=== PATIENT | male | born 1935 | race Caucasian/White ===

== ENCOUNTER 2021-12-25 15:24 | Inpatient (IN) | payer BC ==
[~2021-12-25] VITALS: Ht 172.7 cm; Wt 108.4 kg
[2021-12-25 15:25] VITALS: BP_SYST 118
[2021-12-25 16:25] LABS: BASOPHILS # (AUTO) 0.1 K/uL (0.0-0.2); BASOPHILS % (AUTO) 1.2 % (0.0-2.0); EOSINOPHILS # (AUTO) 0.5 K/uL (0.0-0.4); EOSINOPHILS % (AUTO) 4.5 % (0.0-4.0); HEMATOCRIT 32.8 % (36-54); HEMOGLOBIN 11.3 g/dL (14.0-18.0); LYMPHOCYTES # (AUTO) 1.4 K/uL (1.0-5.5); LYMPHOCYTES % (AUTO) 11.9 % (20.5-51.5); MEAN CORPUSCULAR HEMOGLOBIN 30 pg (27-31); MEAN CORPUSCULAR HGB CONC 34 % (32-36); MEAN CORPUSCULAR VOLUME 87 fL (79.0-98.0); MONOCYTES % (AUTO) 8.6 % (1.7-9.3); NEUTROPHILS # (AUTO) 8.8 K/uL (1.8-7.7); NEUTROPHILS % (AUTO) 73.8 % (40.0-70.0); PLATELET COUNT (AUTO) 413 K/uL (130-430); RED BLOOD CELL COUNT(AUTO) 3.77 MIL/uL (4.2-6.2); RED CELL DISTRIBUTION WIDTH 14.5 % (9.0-15.0)
[2021-12-25 16:43] LABS: ANION GAP 13 (5-15); CALCIUM 8.6 mg/dL (8.4-11.0); CHLORIDE 105 mmol/L (98-107); CREATININE 1.79 mg/dL (0.55-1.30); GLUCOSE 203 mg/dL (70-99); SODIUM SERUM 138 mmol/L (136-145); UREA NITROGEN, BLOOD 51 mg/dL (8-21)
[2021-12-25 16:47] LABS: ALANINE AMINOTRANSFERASE 51 U/L (12-78); ALBUMIN 2.2 g/dL (3.4-4.8); ASPARTATE AMINOTRANSFERASE 34 U/L (10-37); TOTAL BILIRUBIN 0.3 mg/dL (0.0-1.0)
[2021-12-25] MEDS ORDERED: NACL 0.9% 1,000 ML IV ONE (17:15)
[2021-12-25 17:18] LABS: ACETONE, SERUM NEGATIVE (NEGATIVE)
[2021-12-25] MEDS ORDERED: HYDROcodone/ACETAMIN 10-325 MG TAB PO ONE (17:45)
[2021-12-25] MEDS ORDERED: IBUPROFEN 800 MG TABLET PO ONE (17:45)
[2021-12-25 19:14] LABS: BILIRUBIN,URINE NEGATIVE (NEGATIVE); BLOOD, URINE NEGATIVE (NEGATIVE); CLARITY/URINE CLEAR (CLEAR); COLOR,URINE YELLOW (YELLOW); GLUCOSE,URINE NEGATIVE (NEGATIVE); KETONES,URINE NEGATIVE (NEGATIVE); LEUKOCYTE ESTERASE ,URINE NEGATIVE (NEGATIVE); NITRITE, URINE NEGATIVE (NEGATIVE); PROTEIN URINE NEGATIVE (NEGATIVE); UROBILINOGEN,URINE 0.2 (0.2-1.0)
[2021-12-25] MEDS: D5/0.45 NS 1,000 ML IV SCH ×2 (20:06→21:45)
[2021-12-25 21:00] VITALS: BP_SYST 121
[2021-12-25] MEDS ORDERED: NALOXONE HCL 0.4 MG/ML AMP (NARCAN) IVP PRN ×2 (21:45)
[2021-12-25] MEDS ORDERED: LORazepam 2 MG/ML VIAL IVP PRN (21:45)
[2021-12-25] MEDS ORDERED: ONDANSETRON HCL 4 MG/2 ML VIAL IVP PRN (21:45)
[2021-12-25] MEDS ORDERED: METO-540 PO (22:41)
[2021-12-25] MEDS ORDERED: TAMS-11 PO (22:41)
[2021-12-25] MEDS ORDERED: GLIP10TA PO (22:41)
[2021-12-25] MEDS ORDERED: VALS1TAB80 PO (22:41)
[2021-12-25] MEDS ORDERED: LOVA40TA75 PO (22:41)
[2021-12-25] MEDS ORDERED: VIT1TABL67 PO (22:41)
[2021-12-25] MEDS ORDERED: ALLO100T PO (22:41)
[2021-12-25] MEDS ORDERED: SITA1TBM4 PO (22:41)
[2021-12-26] MEDS: D5/0.45 NS 1,000 ML IV SCH ×4 (02:51→19:00)
[2021-12-26] MEDS: ACETAMINOPHEN 325 MG TABLET PO PRN (04:52)
[2021-12-26 06:41] LABS: BASOPHILS # (AUTO) 0.1 K/uL (0.0-0.2); BASOPHILS % (AUTO) 0.8 % (0.0-2.0); EOSINOPHILS # (AUTO) 0.7 K/uL (0.0-0.4); EOSINOPHILS % (AUTO) 6.2 % (0.0-4.0); HEMATOCRIT 31.9 % (36-54); HEMOGLOBIN 10.7 g/dL (14.0-18.0); LYMPHOCYTES # (AUTO) 1.4 K/uL (1.0-5.5); LYMPHOCYTES % (AUTO) 11.8 % (20.5-51.5); MEAN CORPUSCULAR HEMOGLOBIN 29 pg (27-31); MEAN CORPUSCULAR HGB CONC 33 % (32-36); MEAN CORPUSCULAR VOLUME 88 fL (79.0-98.0); MONOCYTES # (AUTO) 1.1 K/uL (0.0-1.0); MONOCYTES % (AUTO) 9.2 % (1.7-9.3); NEUTROPHILS # (AUTO) 8.5 K/uL (1.8-7.7); PLATELET COUNT (AUTO) 412 K/uL (130-430); RED BLOOD CELL COUNT(AUTO) 3.64 MIL/uL (4.2-6.2); RED CELL DISTRIBUTION WIDTH 14.5 % (9.0-15.0); WHITE BLOOD COUNT (AUTO) 11.9 K/uL (4.8-10.8)
[2021-12-26 07:04] LABS: ALANINE AMINOTRANSFERASE 36 U/L (12-78); ANION GAP 10 (5-15); ASPARTATE AMINOTRANSFERASE 29 U/L (10-37); C-REACTIVE PROTEIN QUANT 8.7 mg/dL (0-0.5); CALCIUM 8.1 mg/dL (8.4-11.0); CHLORIDE 107 mmol/L (98-107); CREATININE 1.51 mg/dL (0.55-1.30); GLUCOSE 188 mg/dL (70-99); PHOSPHORUS 3.2 mg/dL (2.7-4.5); POTASSIUM 3.6 mmol/L (3.5-5.1); SODIUM SERUM 137 mmol/L (136-145); TOTAL BILIRUBIN 0.3 mg/dL (0.0-1.0); UREA NITROGEN, BLOOD 42 mg/dL (8-21)
[2021-12-26 07:25] VITALS: BP_SYST 137
[2021-12-26] MEDS ORDERED: ONDANSETRON HCL 4 MG/2 ML VIAL IVP PRN (07:30)
[2021-12-26] MEDS ORDERED: MORPHINE 2 MG/ML INJ. SYRINGE IVP PRN ×2 (07:30)
[2021-12-26] MEDS ORDERED: ACETAMINOPHEN 325 MG TABLET PO PRN (07:30)
[2021-12-26] MEDS ORDERED: LORazepam 2 MG/ML VIAL IVP PRN (07:30)
[2021-12-26] MEDS ORDERED: NALOXONE HCL 0.4 MG/ML AMP (NARCAN) IVP PRN ×2 (07:30)
[2021-12-26] MEDS ORDERED: POTASSIUM CHLORIDE 20 MEQ TAB.PRT.SR PO PRN (07:30)
[2021-12-26] MEDS ORDERED: MUPIROCIN 2% TOPICAL OINTMENT 22 GM NS PRN (07:30)
[2021-12-26] MEDS ORDERED: MAGNESIUM SULFATE 50 ML IV PRN (07:30)
[2021-12-26] MEDS ORDERED: DEXTROSE 50% JECT 50 ML DISP.SYRIN IVP PRN (07:30)
[2021-12-26] MEDS: ALLOPURINOL 100 MG TABLET (ZYLOPRIM) PO SCH ×3 (08:26→21:33)
[2021-12-26] MEDS: TAMSULOSIN HCL 0.4 MG CAP PO SCH (08:26)
[2021-12-26] MEDS: HEPARIN SODIUM,PORCINE 5,000 UNITS/ML VIAL SUBCUT SCH ×2 (08:33→21:44)
[2021-12-26] MEDS ORDERED: HYDROCHLOROTHIAZIDE 25 MG TABLET (HCTZ) PO SCH (09:00)
[2021-12-26 09:18] LABS: ERYTHROCYTE SEDIMENTATION RATE 97 MM/HR (0-15)
[2021-12-26] MEDS ORDERED: ATORVASTATIN 10 MG TABLET PO ONE (11:00)
[2021-12-26 11:41] VITALS: BP_SYST 144
[2021-12-26] MEDS: METOPROLOL SUCCINATE 25 MG TAB.SR.24H (TOPROL XL) PO SCH (12:02)
[2021-12-26] MEDS: INSULIN LISPRO SLIDING SCALE 100 UNITS/ML VIAL (humaLOG) SUBCUT PRN ×3 (12:07→21:44)
[2021-12-26] MEDS: HYDROcodone/ACETAMIN 5-325 MG TAB (NORCO/ VICODIN) PO PRN (13:06)
[2021-12-26 16:30] VITALS: BP_SYST 142
[2021-12-26] MEDS: cefTRIAXone 1 GM in D5W 50 ML IV SCH (17:53)
[2021-12-26] MEDS: HYDROcodone/ACETAMIN 10-325 MG TAB PO PRN (18:59)
[2021-12-26 20:00] VITALS: BP_SYST 136
[2021-12-26] MEDS: DOCUSATE SODIUM 100 MG CAPSULE PO PRN (21:34)
[2021-12-27 01:45] VITALS: BP_SYST 137
[2021-12-27] MEDS: HYDROcodone/ACETAMIN 10-325 MG TAB PO PRN ×3 (03:00→22:30)
[2021-12-27] MEDS: D5/0.45 NS 1,000 ML IV SCH ×2 (03:45→14:12)
[2021-12-27 05:30] VITALS: BP_SYST 124
[2021-12-27 06:25] LABS: BASOPHILS # (AUTO) 0.1 K/uL (0.0-0.2); BASOPHILS % (AUTO) 0.6 % (0.0-2.0); EOSINOPHILS # (AUTO) 0.6 K/uL (0.0-0.4); EOSINOPHILS % (AUTO) 4.3 % (0.0-4.0); HEMATOCRIT 32.4 % (36-54); HEMOGLOBIN 11.1 g/dL (14.0-18.0); LYMPHOCYTES # (AUTO) 1.4 K/uL (1.0-5.5); LYMPHOCYTES % (AUTO) 10.7 % (20.5-51.5); MEAN CORPUSCULAR HEMOGLOBIN 30 pg (27-31); MEAN CORPUSCULAR HGB CONC 34 % (32-36); MEAN CORPUSCULAR VOLUME 87 fL (79.0-98.0); MONOCYTES # (AUTO) 1.1 K/uL (0.0-1.0); MONOCYTES % (AUTO) 8.1 % (1.7-9.3); NEUTROPHILS # (AUTO) 10.3 K/uL (1.8-7.7); NEUTROPHILS % (AUTO) 76.3 % (40.0-70.0); PLATELET COUNT (AUTO) 408 K/uL (130-430); RED BLOOD CELL COUNT(AUTO) 3.71 MIL/uL (4.2-6.2); RED CELL DISTRIBUTION WIDTH 14.4 % (9.0-15.0); WHITE BLOOD COUNT (AUTO) 13.5 K/uL (4.8-10.8)
[2021-12-27 06:39] LABS: ANION GAP 12 (5-15); CHLORIDE 103 mmol/L (98-107); CREATININE 1.32 mg/dL (0.55-1.30); GLUCOSE 219 mg/dL (70-99); POTASSIUM 3.7 mmol/L (3.5-5.1); SODIUM SERUM 133 mmol/L (136-145); UREA NITROGEN, BLOOD 25 mg/dL (8-21)
[2021-12-27] MEDS: INSULIN LISPRO SLIDING SCALE 100 UNITS/ML VIAL (humaLOG) SUBCUT PRN ×3 (07:02→17:33)
[2021-12-27] MEDS: ATORVASTATIN 10 MG TABLET PO SCH (08:42)
[2021-12-27] MEDS: TAMSULOSIN HCL 0.4 MG CAP PO SCH (08:42)
[2021-12-27] MEDS: ALLOPURINOL 100 MG TABLET (ZYLOPRIM) PO SCH ×3 (08:42→21:00)
[2021-12-27] MEDS: LOSARTAN POTASSIUM 50 MG TABLET (COZAAR) PO SCH (08:43)
[2021-12-27] MEDS: METOPROLOL SUCCINATE 25 MG TAB.SR.24H (TOPROL XL) PO SCH (08:43)
[2021-12-27] MEDS ORDERED: APIXABAN 2.5 MG TABLET PO ONE (09:15)
[2021-12-27] MEDS: AMIODARONE HCL 200 MG TABLET PO SCH ×2 (10:23→21:00)
[2021-12-27 12:52] VITALS: BP_SYST 117
[2021-12-27] MEDS: HYDROcodone/ACETAMIN 5-325 MG TAB (NORCO/ VICODIN) PO PRN (14:11)
[2021-12-27] MEDS: DOCUSATE SODIUM 100 MG CAPSULE PO PRN (14:13)
[2021-12-27 16:33] VITALS: BP_SYST 115
[2021-12-27] MEDS: cefTRIAXone 1 GM in D5W 50 ML IV SCH (17:01)
[2021-12-27] MEDS: LACTULOSE 20 GM/30 ML UDC PO SCH (21:00)
[2021-12-28] MEDS: D5/0.45 NS 1,000 ML IV SCH
[2021-12-28] MEDS: APIXABAN 2.5 MG TABLET PO SCH ×3 (00:16→20:59)
[2021-12-28 00:31] VITALS: BP_SYST 120
[2021-12-28] MEDS: HYDROcodone/ACETAMIN 10-325 MG TAB PO PRN (06:02)
[2021-12-28] MEDS: INSULIN LISPRO SLIDING SCALE 100 UNITS/ML VIAL (humaLOG) SUBCUT PRN ×4 (06:09→21:02)
[2021-12-28 07:56] LABS: BASOPHILS # (AUTO) 0.1 K/uL (0.0-0.2); BASOPHILS % (AUTO) 0.7 % (0.0-2.0); EOSINOPHILS # (AUTO) 0.4 K/uL (0.0-0.4); EOSINOPHILS % (AUTO) 2.5 % (0.0-4.0); HEMATOCRIT 31.9 % (36-54); HEMOGLOBIN 10.9 g/dL (14.0-18.0); LYMPHOCYTES # (AUTO) 1.2 K/uL (1.0-5.5); LYMPHOCYTES % (AUTO) 8.5 % (20.5-51.5); MEAN CORPUSCULAR HEMOGLOBIN 30 pg (27-31); MEAN CORPUSCULAR HGB CONC 34 % (32-36); MEAN CORPUSCULAR VOLUME 87 fL (79.0-98.0); MONOCYTES % (AUTO) 7.4 % (1.7-9.3); NEUTROPHILS # (AUTO) 11.5 K/uL (1.8-7.7); NEUTROPHILS % (AUTO) 80.9 % (40.0-70.0); PLATELET COUNT (AUTO) 427 K/uL (130-430); RED BLOOD CELL COUNT(AUTO) 3.66 MIL/uL (4.2-6.2); RED CELL DISTRIBUTION WIDTH 14.8 % (9.0-15.0); WHITE BLOOD COUNT (AUTO) 14.2 K/uL (4.8-10.8)
[2021-12-28 08:07] VITALS: BP_SYST 124
[2021-12-28] MEDS: AMIODARONE HCL 200 MG TABLET PO SCH ×2 (08:09→20:57)
[2021-12-28] MEDS: LOSARTAN POTASSIUM 50 MG TABLET (COZAAR) PO SCH (08:09)
[2021-12-28] MEDS: METOPROLOL SUCCINATE 25 MG TAB.SR.24H (TOPROL XL) PO SCH (08:10)
[2021-12-28] MEDS: ALLOPURINOL 100 MG TABLET (ZYLOPRIM) PO SCH ×3 (08:11→20:57)
[2021-12-28] MEDS: ATORVASTATIN 10 MG TABLET PO SCH (08:11)
[2021-12-28] MEDS: LACTULOSE 20 GM/30 ML UDC PO SCH ×3 (08:11→20:56)
[2021-12-28] MEDS: TAMSULOSIN HCL 0.4 MG CAP PO SCH (08:11)
[2021-12-28 09:49] LABS: CHLORIDE 103 mmol/L (98-107); POTASSIUM 4.1 mmol/L (3.5-5.1); SODIUM SERUM 133 mmol/L (136-145)
[2021-12-28 09:50] LABS: ALANINE AMINOTRANSFERASE 33 U/L (12-78); ALBUMIN 1.9 g/dL (3.4-4.8); ANION GAP 12 (5-15); ASPARTATE AMINOTRANSFERASE 20 U/L (10-37); CALCIUM 8.4 mg/dL (8.4-11.0); CREATININE 1.33 mg/dL (0.55-1.30); GLUCOSE 228 mg/dL (70-99); TOTAL BILIRUBIN 0.5 mg/dL (0.0-1.0); UREA NITROGEN, BLOOD 23 mg/dL (8-21)
[2021-12-28 09:51] LABS: CHOLESTEROL 98 mg/dL (<200); HDL CHOLESTEROL 33 mg/dL (>45); LDL CHOLESTEROL 58 mg/dL (<100); TRIGLYCERIDES 65 mg/dL (30-150)
[2021-12-28 10:35] LABS: THYROID STIMULATING HORMONE 0.27 uIu/mL (0.36-3.74)
[2021-12-28 11:54] VITALS: BP_SYST 132
[2021-12-28] MEDS: ACETAMINOPHEN 325 MG TABLET PO PRN (13:51)
[2021-12-28] MEDS ORDERED: FUROSEMIDE 20 MG/2 ML VIAL IVP ONE (16:15)
[2021-12-28] MEDS ORDERED: ALBUTEROL SULFATE 0.083% 2.5 MG/3 ML VIAL.NEB INH ONE (16:33)
[2021-12-28] MEDS: ALBUTEROL SULFATE 0.083% 2.5 MG/3 ML VIAL.NEB INH SCH (16:43)
[2021-12-28 17:02] VITALS: BP_SYST 129
[2021-12-28 17:10] VITALS: BP_SYST 129
[2021-12-28] MEDS: cefTRIAXone 1 GM in D5W 50 ML IV SCH (17:48)
[2021-12-28 20:00] VITALS: BP_SYST 152
[2021-12-29 00:52] VITALS: BP_SYST 153
[2021-12-29] MEDS: INSULIN LISPRO SLIDING SCALE 100 UNITS/ML VIAL (humaLOG) SUBCUT PRN ×4 (06:08→20:34)
[2021-12-29 07:30] LABS: BASOPHILS # (AUTO) 0.1 K/uL (0.0-0.2); BASOPHILS % (AUTO) 0.9 % (0.0-2.0); EOSINOPHILS # (AUTO) 0.3 K/uL (0.0-0.4); EOSINOPHILS % (AUTO) 2.3 % (0.0-4.0); HEMATOCRIT 33.8 % (36-54); HEMOGLOBIN 11.5 g/dL (14.0-18.0); LYMPHOCYTES # (AUTO) 1.2 K/uL (1.0-5.5); LYMPHOCYTES % (AUTO) 7.8 % (20.5-51.5); MEAN CORPUSCULAR HEMOGLOBIN 30 pg (27-31); MEAN CORPUSCULAR HGB CONC 34 % (32-36); MEAN CORPUSCULAR VOLUME 88 fL (79.0-98.0); MONOCYTES # (AUTO) 1.1 K/uL (0.0-1.0); MONOCYTES % (AUTO) 7.6 % (1.7-9.3); NEUTROPHILS # (AUTO) 12.4 K/uL (1.8-7.7); NEUTROPHILS % (AUTO) 81.4 % (40.0-70.0); PLATELET COUNT (AUTO) 463 K/uL (130-430); RED BLOOD CELL COUNT(AUTO) 3.87 MIL/uL (4.2-6.2); RED CELL DISTRIBUTION WIDTH 14.4 % (9.0-15.0); WHITE BLOOD COUNT (AUTO) 15.2 K/uL (4.8-10.8)
[2021-12-29 07:32] LABS: ANION GAP 11 (5-15); CALCIUM 8.3 mg/dL (8.4-11.0); CHLORIDE 102 mmol/L (98-107); CREATININE 1.41 mg/dL (0.55-1.30); GLUCOSE 210 mg/dL (70-99); SODIUM SERUM 132 mmol/L (136-145); UREA NITROGEN, BLOOD 22 mg/dL (8-21)
[2021-12-29] MEDS: ALBUTEROL SULFATE 0.083% 2.5 MG/3 ML VIAL.NEB INH SCH ×5 (07:50→23:10)
[2021-12-29 08:00] VITALS: BP_SYST 146
[2021-12-29] MEDS: ATORVASTATIN 10 MG TABLET PO SCH (08:54)
[2021-12-29] MEDS: ALLOPURINOL 100 MG TABLET (ZYLOPRIM) PO SCH ×3 (08:55→20:19)
[2021-12-29] MEDS: TAMSULOSIN HCL 0.4 MG CAP PO SCH (08:55)
[2021-12-29] MEDS: LOSARTAN POTASSIUM 50 MG TABLET (COZAAR) PO SCH (08:55)
[2021-12-29] MEDS: AMIODARONE HCL 200 MG TABLET PO SCH ×2 (08:56→20:19)
[2021-12-29] MEDS: LACTULOSE 20 GM/30 ML UDC PO SCH ×3 (08:57→20:19)
[2021-12-29] MEDS: METOPROLOL SUCCINATE 25 MG TAB.SR.24H (TOPROL XL) PO SCH (08:57)
[2021-12-29] MEDS: APIXABAN 2.5 MG TABLET PO SCH ×2 (08:57→20:31)
[2021-12-29 12:00] VITALS: BP_SYST 128
[2021-12-29] MEDS: PIPERACILLIN/TAZO 2.25G/DEX-IS 50 ML IV SCH ×2 (12:28→20:15)
[2021-12-29 16:00] VITALS: BP_SYST 132
[2021-12-29] MEDS ORDERED: DIATR MEGLU/DIATRIZ SOD 30 ML SOLUTION PO ONE (16:33)
[2021-12-29] MEDS ORDERED: FUROSEMIDE 20 MG/2 ML VIAL IVP ONE (17:00)
[2021-12-29] MEDS ORDERED: iohexoL 240 mgI/mL, 150 ML INFUS..BTL IV ONE (18:43)
[2021-12-29 20:00] VITALS: BP_SYST 138
[2021-12-30] VITALS: BP_SYST 133
[2021-12-30] MEDS: PIPERACILLIN/TAZO 2.25G/DEX-IS 50 ML IV SCH ×4 (01:48→19:00)
[2021-12-30] MEDS: ALBUTEROL SULFATE 0.083% 2.5 MG/3 ML VIAL.NEB INH SCH ×6 (03:19→23:35)
[2021-12-30] MEDS: ACETAMINOPHEN 325 MG TABLET PO PRN ×2 (04:19→20:36)
[2021-12-30] MEDS: INSULIN LISPRO SLIDING SCALE 100 UNITS/ML VIAL (humaLOG) SUBCUT PRN ×4 (06:25→20:51)
[2021-12-30 07:27] LABS: BASOPHILS # (AUTO) 0.1 K/uL (0.0-0.2); BASOPHILS % (AUTO) 0.8 % (0.0-2.0); EOSINOPHILS # (AUTO) 0.3 K/uL (0.0-0.4); EOSINOPHILS % (AUTO) 2.5 % (0.0-4.0); HEMATOCRIT 31.7 % (36-54); HEMOGLOBIN 10.9 g/dL (14.0-18.0); LYMPHOCYTES # (AUTO) 0.6 K/uL (1.0-5.5); LYMPHOCYTES % (AUTO) 4.8 % (20.5-51.5); MEAN CORPUSCULAR HEMOGLOBIN 30 pg (27-31); MEAN CORPUSCULAR HGB CONC 34 % (32-36); MEAN CORPUSCULAR VOLUME 87 fL (79.0-98.0); MONOCYTES # (AUTO) 0.5 K/uL (0.0-1.0); MONOCYTES % (AUTO) 3.9 % (1.7-9.3); NEUTROPHILS # (AUTO) 11.6 K/uL (1.8-7.7); PLATELET COUNT (AUTO) 460 K/uL (130-430); RED BLOOD CELL COUNT(AUTO) 3.64 MIL/uL (4.2-6.2); RED CELL DISTRIBUTION WIDTH 14.9 % (9.0-15.0); WHITE BLOOD COUNT (AUTO) 13.2 K/uL (4.8-10.8)
[2021-12-30 07:56] LABS: ANION GAP 11 (5-15); CALCIUM 8.4 mg/dL (8.4-11.0); CHLORIDE 101 mmol/L (98-107); CREATININE 1.68 mg/dL (0.55-1.30); GLUCOSE 246 mg/dL (70-99); POTASSIUM 3.7 mmol/L (3.5-5.1); SODIUM SERUM 132 mmol/L (136-145); UREA NITROGEN, BLOOD 27 mg/dL (8-21)
[2021-12-30] MEDS: AMIODARONE HCL 200 MG TABLET PO SCH ×2 (08:52→20:35)
[2021-12-30] MEDS: LOSARTAN POTASSIUM 50 MG TABLET (COZAAR) PO SCH (09:01)
[2021-12-30] MEDS: TAMSULOSIN HCL 0.4 MG CAP PO SCH (09:02)
[2021-12-30] MEDS: METOPROLOL SUCCINATE 25 MG TAB.SR.24H (TOPROL XL) PO SCH (09:02)
[2021-12-30] MEDS: ATORVASTATIN 10 MG TABLET PO SCH (09:02)
[2021-12-30] MEDS: LACTULOSE 20 GM/30 ML UDC PO SCH (09:03)
[2021-12-30] MEDS: ALLOPURINOL 100 MG TABLET (ZYLOPRIM) PO SCH ×3 (09:03→20:35)
[2021-12-30] MEDS: APIXABAN 2.5 MG TABLET PO SCH ×2 (09:05→20:34)
[2021-12-30 10:01] VITALS: BP_SYST 116
[2021-12-30] MEDS ORDERED: LACTULOSE 20 GM/30 ML UDC PO PRN (11:00)
[2021-12-30 11:36] VITALS: BP_SYST 118
[2021-12-30] MEDS: NACL 0.9% 1,000 ML IV SCH (11:40)
[2021-12-30 20:10] VITALS: BP_SYST 112
[2021-12-31] VITALS (9 sets, daily range): BP systolic 110–123
[2021-12-31] MEDS: PIPERACILLIN/TAZO 2.25G/DEX-IS 50 ML IV SCH ×4 (00:28→18:00)
[2021-12-31] MEDS: ALBUTEROL SULFATE 0.083% 2.5 MG/3 ML VIAL.NEB INH SCH ×6 (03:00→23:53)
[2021-12-31] MEDS: INSULIN LISPRO SLIDING SCALE 100 UNITS/ML VIAL (humaLOG) SUBCUT PRN ×4 (06:16→21:10)
[2021-12-31 07:53] LABS: ANION GAP 7 (5-15); CALCIUM 8.3 mg/dL (8.4-11.0); CHLORIDE 102 mmol/L (98-107); CREATININE 1.97 mg/dL (0.55-1.30); GLUCOSE 201 mg/dL (70-99); POTASSIUM 3.9 mmol/L (3.5-5.1); SODIUM SERUM 132 mmol/L (136-145); UREA NITROGEN, BLOOD 34 mg/dL (8-21)
[2021-12-31 08:36] LABS: BASOPHILS % (AUTO) 0.4 % (0.0-2.0); EOSINOPHILS # (AUTO) 0.6 K/uL (0.0-0.4); EOSINOPHILS % (AUTO) 5.5 % (0.0-4.0); HEMATOCRIT 32.3 % (36-54); HEMOGLOBIN 10.9 g/dL (14.0-18.0); LYMPHOCYTES # (AUTO) 0.9 K/uL (1.0-5.5); MEAN CORPUSCULAR HEMOGLOBIN 30 pg (27-31); MEAN CORPUSCULAR HGB CONC 34 % (32-36); MEAN CORPUSCULAR VOLUME 88 fL (79.0-98.0); MONOCYTES # (AUTO) 0.7 K/uL (0.0-1.0); MONOCYTES % (AUTO) 6.2 % (1.7-9.3); NEUTROPHILS # (AUTO) 8.7 K/uL (1.8-7.7); NEUTROPHILS % (AUTO) 79.9 % (40.0-70.0); PLATELET COUNT (AUTO) 512 K/uL (130-430); RED BLOOD CELL COUNT(AUTO) 3.65 MIL/uL (4.2-6.2); RED CELL DISTRIBUTION WIDTH 14.8 % (9.0-15.0); WHITE BLOOD COUNT (AUTO) 10.9 K/uL (4.8-10.8)
[2021-12-31] MEDS: TAMSULOSIN HCL 0.4 MG CAP PO SCH (08:46)
[2021-12-31] MEDS: ALLOPURINOL 100 MG TABLET (ZYLOPRIM) PO SCH ×3 (08:46→21:09)
[2021-12-31] MEDS: ACETAMINOPHEN 325 MG TABLET PO PRN ×2 (08:48→11:11)
[2021-12-31] MEDS: AMIODARONE HCL 200 MG TABLET PO SCH ×2 (08:49→21:09)
[2021-12-31] MEDS: ATORVASTATIN 10 MG TABLET PO SCH (08:49)
[2021-12-31] MEDS: LOSARTAN POTASSIUM 50 MG TABLET (COZAAR) PO SCH (08:50)
[2021-12-31] MEDS: METOPROLOL SUCCINATE 25 MG TAB.SR.24H (TOPROL XL) PO SCH (08:50)
[2021-12-31] MEDS: APIXABAN 2.5 MG TABLET PO SCH ×2 (08:52→21:08)
[2021-12-31] MEDS ORDERED: ALBUMIN HUMAN 25% 100 ML IV ONE (15:45)
[2021-12-31] MEDS: NACL 0.9% 1,000 ML IV SCH (17:59)
[2022-01-01] MEDS: PIPERACILLIN/TAZO 2.25G/DEX-IS 50 ML IV SCH ×4 (00:34→17:07)
[2022-01-01] MEDS: ACETAMINOPHEN 325 MG TABLET PO PRN ×2 (00:34→21:42)
[2022-01-01 01:10] VITALS: BP_SYST 117
[2022-01-01] MEDS: INSULIN LISPRO SLIDING SCALE 100 UNITS/ML VIAL (humaLOG) SUBCUT PRN ×3 (06:13→17:09)
[2022-01-01 07:29] LABS: ALANINE AMINOTRANSFERASE 29 U/L (12-78); ALBUMIN 2.2 g/dL (3.4-4.8); ANION GAP 10 (5-15); ASPARTATE AMINOTRANSFERASE 21 U/L (10-37); CALCIUM 8.2 mg/dL (8.4-11.0); CHLORIDE 104 mmol/L (98-107); CREATININE 1.92 mg/dL (0.55-1.30); GLUCOSE 173 mg/dL (70-99); POTASSIUM 4.1 mmol/L (3.5-5.1); SODIUM SERUM 135 mmol/L (136-145); TOTAL BILIRUBIN 0.3 mg/dL (0.0-1.0); UREA NITROGEN, BLOOD 30 mg/dL (8-21)
[2022-01-01 08:00] VITALS: BP_SYST 125
[2022-01-01] MEDS: ALBUTEROL SULFATE 0.083% 2.5 MG/3 ML VIAL.NEB INH SCH ×4 (08:00→23:00)
[2022-01-01] MEDS: AMIODARONE HCL 200 MG TABLET PO SCH ×2 (09:43→21:43)
[2022-01-01] MEDS: TAMSULOSIN HCL 0.4 MG CAP PO SCH (09:44)
[2022-01-01] MEDS: ALLOPURINOL 100 MG TABLET (ZYLOPRIM) PO SCH ×3 (09:44→21:43)
[2022-01-01] MEDS: LOSARTAN POTASSIUM 50 MG TABLET (COZAAR) PO SCH (09:44)
[2022-01-01] MEDS: APIXABAN 2.5 MG TABLET PO SCH ×2 (09:45→21:47)
[2022-01-01] MEDS: METOPROLOL SUCCINATE 25 MG TAB.SR.24H (TOPROL XL) PO SCH (09:46)
[2022-01-01] MEDS: ATORVASTATIN 10 MG TABLET PO SCH (09:46)
[2022-01-01 10:43] VITALS: BP_SYST 125
[2022-01-01 12:00] VITALS: BP_SYST 128
[2022-01-01 16:00] VITALS: BP_SYST 126
[2022-01-01] MEDS: NACL 0.9% 1,000 ML IV SCH ×2 (17:39→22:26)
[2022-01-01 19:45] VITALS: BP_SYST 138
[2022-01-02 00:26] VITALS: BP_SYST 133
[2022-01-02] MEDS: ALBUTEROL SULFATE 0.083% 2.5 MG/3 ML VIAL.NEB INH SCH ×3 (00:27→12:05)
[2022-01-02] MEDS: PIPERACILLIN/TAZO 2.25G/DEX-IS 50 ML IV SCH ×2 (00:30→06:07)
[2022-01-02 09:47] LABS: ANION GAP 10 (5-15); CALCIUM 8.2 mg/dL (8.4-11.0); CHLORIDE 105 mmol/L (98-107); CREATININE 1.87 mg/dL (0.55-1.30); GLUCOSE 269 mg/dL (70-99); POTASSIUM 4.5 mmol/L (3.5-5.1); SODIUM SERUM 135 mmol/L (136-145); UREA NITROGEN, BLOOD 27 mg/dL (8-21)
[2022-01-02] MEDS: ALLOPURINOL 100 MG TABLET (ZYLOPRIM) PO SCH (10:19)
[2022-01-02] MEDS: TAMSULOSIN HCL 0.4 MG CAP PO SCH (10:19)
[2022-01-02] MEDS: METOPROLOL SUCCINATE 25 MG TAB.SR.24H (TOPROL XL) PO SCH (10:20)
[2022-01-02] MEDS: ATORVASTATIN 10 MG TABLET PO SCH (10:21)
[2022-01-02] MEDS: APIXABAN 2.5 MG TABLET PO SCH (10:25)
[2022-01-02] MEDS: AMIODARONE HCL 200 MG TABLET PO SCH (10:27)
[2022-01-02] MEDS ORDERED: AMIO200T61 PO (10:29)
[2022-01-02] MEDS ORDERED: APIX2.5T PO (10:29)
[2022-01-02] MEDS: LOSARTAN POTASSIUM 50 MG TABLET (COZAAR) PO SCH (10:32)
[2022-01-02 11:28] VITALS: BP_SYST 129
[2022-01-02] MEDS: INSULIN LISPRO SLIDING SCALE 100 UNITS/ML VIAL (humaLOG) SUBCUT PRN (12:49)
[2022-01-02 13:01] VITALS: BP_SYST 145
[2022-01-02] MEDS ORDERED: AMOXICILLIN/CLAVULANATE POTASSIUM 500 MG TABLET PO SCH (21:00)
== END 2022-01-02 15:00 | disposition home health service (06) | DRG 637 ==
LOC: SED 15:24 → STU 17:24 → SMU 12-30 22:39
PROVIDERS: ADMIT General Practice; ATTEND General Practice
DX: E11.65 Type 2 diabetes mellitus with hyperglycemia (principal); N17.0 Acute kidney failure with tubular necrosis; E43 Unspecified severe protein-calorie malnutrition; I13.0 Hypertensive heart and chronic kidney disease with heart failure and stage 1 through stage 4 chronic kidney disease, or unspecified chronic kidney disease; E86.0 Dehydration; R62.7 Adult failure to thrive; Z20.822 Contact with and (suspected) exposure to COVID-19; E11.22 Type 2 diabetes mellitus with diabetic chronic kidney disease; E66.01 Morbid (severe) obesity due to excess calories; N18.9 Chronic kidney disease, unspecified; I48.91 Unspecified atrial fibrillation; I50.9 Heart failure, unspecified; Z60.2 Problems related to living alone; E78.5 Hyperlipidemia, unspecified; Z79.899 Other long term (current) drug therapy; Z79.4 Long term (current) use of insulin; Z68.36 Body mass index [BMI] 36.0-36.9, adult; Z85.46 Personal history of malignant neoplasm of prostate; Z90.79 Acquired absence of other genital organ(s)
CPT/HCPCS: 36415; 70450-TC; 71045; 74018; 76376; 76770; 80048; 80053; 80061; 81003; 82009; 82550; 82962; 83036; 83605; 83735; 83880; 84100; 84443; 84484; 85025; 85651-TC; 86140; 87040; 87086; 93005; 93306; 94640; 94760; 96360; 97110-GP; 97112-GP; 97116-GP; 97530-GP; 99285; G0378; J0696; J1644; J1940; J2060; J2543; J7030; J7060; J7613; Q9964; Q9966

== ENCOUNTER 2022-10-08 11:37 | Inpatient (IN) | payer BC ==
[~2022-10-08] VITALS: Ht 175.3 cm; Wt 102.1 kg
[~2022-10-08 11:37] MED LIST: ALLO100T PO; AMIO200T61 PO; APIX2.5T PO; GLIP10TA PO; LOVA40TA75 PO; METO-540 PO; SITA1TBM4 PO; TAMS-11 PO; VALS1TAB80 PO; VIT1TABL67 PO
[2022-10-08 11:46] VITALS: BP_SYST 105
--- NOTE | 2022-10-08 11:51 | NUR ---
PT TRIAGED. EGD DONE. NOTED 02 AT 91%, PLACED PT ON 2L OF [address] AVILES WITH PT.
--- NOTE | 2022-10-08 12:00 | NUR ---
RECEIVED PT FROM RONDA JONES. PT BIB DAUGHTER WITH C/O SOB. PT IS AAOX4. TELEMONITOR SHOWS NSR. PT TACHYPENIC RR 22 O2 SAT 99 WITH N/C AT 2LPM. NO COUGH NOTED. LUNG SOUND DIMINISHED. PT DENIES N/V/D/C. DISTAL PULSES NORMAL, BLE 2+ EDEMA NOTED, BLE DRY, FLAKEY. DENIES PAIN. DAUGHTER AT BEDSIDE. SIDRAILS UP X2.
--- NOTE | 2022-10-08 12:00 | NUR ---
pt o2 sat noted to be 97% on 2 lpm nc
--- NOTE | 2022-10-08 12:05 | NUR ---
covid nasal swab collected and sent to lab
--- NOTE | 2022-10-08 12:07 | NUR ---
# 20 gauge angiocath placed to RFA. Use of asceptic technique. Opsite placed over site. Blood return noted. Flushed with 10 cc of normal saline. No evidence of infiltration noted. Patient tolerated well.
[2022-10-08 12:27] LABS: BASOPHILS # (AUTO) 0.1 K/uL (0.0-0.2); BASOPHILS % (AUTO) 0.8 % (0.0-2.0); EOSINOPHILS # (AUTO) 0.2 K/uL (0.0-0.4); EOSINOPHILS % (AUTO) 2.3 % (0.0-4.0); HEMATOCRIT 30.2 % (36-54); HEMOGLOBIN 10.2 g/dL (14.0-18.0); LYMPHOCYTES # (AUTO) 1.1 K/uL (1.0-5.5); LYMPHOCYTES % (AUTO) 10.8 % (20.5-51.5); MEAN CORPUSCULAR HEMOGLOBIN 31 pg (27-31); MEAN CORPUSCULAR HGB CONC 34 % (32-36); MEAN CORPUSCULAR VOLUME 92 fL (79.0-98.0); MONOCYTES # (AUTO) 0.5 K/uL (0.0-1.0); MONOCYTES % (AUTO) 4.9 % (1.7-9.3); NEUTROPHILS # (AUTO) 8.1 K/uL (1.8-7.7); NEUTROPHILS % (AUTO) 81.2 % (40.0-70.0); PLATELET COUNT (AUTO) 239 K/uL (130-430); RED BLOOD CELL COUNT(AUTO) 3.27 MIL/uL (4.2-6.2); RED CELL DISTRIBUTION WIDTH 16.4 % (9.0-15.0)
[2022-10-08] MEDS ORDERED: ALLO100T PO (12:34)
[2022-10-08] MEDS ORDERED: TAMS-11 PO (12:34)
[2022-10-08] MEDS ORDERED: VALS1TAB80 PO (12:34)
[2022-10-08] MEDS ORDERED: SITA1TBM4 PO (12:34)
[2022-10-08] MEDS ORDERED: AMIO200T66 PO (12:34)
[2022-10-08] MEDS ORDERED: LOVA40TA75 PO (12:34)
[2022-10-08] MEDS ORDERED: CAS50 (12:34)
[2022-10-08 12:44] LABS: ALANINE AMINOTRANSFERASE 27 U/L (12-78); ALBUMIN 2.7 g/dL (3.4-4.8); ANION GAP 10 (5-15); ASPARTATE AMINOTRANSFERASE 26 U/L (10-37); CALCIUM 8.5 mg/dL (8.4-11.0); CHLORIDE 102 mmol/L (98-107); CREATININE 1.83 mg/dL (0.55-1.30); GLUCOSE 187 mg/dL (70-99); TOTAL BILIRUBIN 0.4 mg/dL (0.0-1.0); UREA NITROGEN, BLOOD 42 mg/dL (8-21)
[2022-10-08] MEDS ORDERED: FUROSEMIDE 40 MG/4 ML VIAL IVP ONE (13:30)
--- NOTE | 2022-10-08 13:34 | NUR ---
LASIX 40 MG IVP GIVEN FOR BLE EDEMA 2+.
--- NOTE | 2022-10-08 19:31 | NUR ---
PT ENDORSED TO RONDA SORENSON. ALL QUESTIONS AND CONCERNS ADDRESSED.
--- NOTE | 2022-10-08 20:00 | NUR ---
ADMISSION NOTE Received patient from ER via zuleyka, received report from Fabian/ RN. Patient admitted with diagnosis of hypertension . Patient oriented to hospital routine, call light, toileting and safety-patient verbalized understanding.
[2022-10-08 20:04] VITALS: BP_SYST 144
--- NOTE | 2022-10-08 20:12 | NUR ---
Patient will be admitted to care of HYPERTENSION. Admitted to TELE unit. Will go to room . Belongings list completed. Complete and up to date summary report printed. SBAR report to be given at bedside with opportunity for questions. PT LEFT WITH HIS BELONMGGIL
--- NOTE | 2022-10-08 20:53 | NUR ---
CONSULTATION PAGED/CALLED Reason for Consultation: HTN/PULMONARY EDEMA Person Who was Notified: BALDOMERO Consulting Physician: DR. MAURICIO Engineering Design Manager Specialty: IC DESIGN[employer] Ordering Physician: DR. KAY
--- NOTE | 2022-10-08 23:39 | NUR ---
Patient has no SOB with good urine output vitals sign stable , will monitor.
[2022-10-08 23:40] VITALS: BP_SYST 116
--- NOTE | 2022-10-09 06:28 | NUR ---
Slept well as verbalized , on room air oxygen saturation 95 %, no sign of acute distress.
[2022-10-09 07:21] LABS: BASOPHILS % (AUTO) 0.5 % (0.0-2.0); EOSINOPHILS # (AUTO) 0.3 K/uL (0.0-0.4); HEMATOCRIT 30.9 % (36-54); HEMOGLOBIN 10.2 g/dL (14.0-18.0); LYMPHOCYTES # (AUTO) 1.1 K/uL (1.0-5.5); LYMPHOCYTES % (AUTO) 10.4 % (20.5-51.5); MEAN CORPUSCULAR HEMOGLOBIN 31 pg (27-31); MEAN CORPUSCULAR HGB CONC 33 % (32-36); MEAN CORPUSCULAR VOLUME 92 fL (79.0-98.0); MONOCYTES # (AUTO) 0.8 K/uL (0.0-1.0); MONOCYTES % (AUTO) 7.2 % (1.7-9.3); NEUTROPHILS # (AUTO) 8.3 K/uL (1.8-7.7); NEUTROPHILS % (AUTO) 78.9 % (40.0-70.0); PLATELET COUNT (AUTO) 249 K/uL (130-430); RED BLOOD CELL COUNT(AUTO) 3.34 MIL/uL (4.2-6.2); RED CELL DISTRIBUTION WIDTH 16.7 % (9.0-15.0); WHITE BLOOD COUNT (AUTO) 10.6 K/uL (4.8-10.8)
[2022-10-09 07:30] LABS: ANION GAP 9 (5-15); CHLORIDE 106 mmol/L (98-107); CREATININE 1.77 mg/dL (0.55-1.30); GLUCOSE 132 mg/dL (70-99); UREA NITROGEN, BLOOD 35 mg/dL (8-21)
[2022-10-09 07:42] LABS: ALANINE AMINOTRANSFERASE 29 U/L (12-78); ALBUMIN 2.8 g/dL (3.4-4.8); ASPARTATE AMINOTRANSFERASE 27 U/L (10-37); CHOLESTEROL 121 mg/dL (<200); HDL CHOLESTEROL 64 mg/dL (>45); THYROID STIMULATING HORMONE 0.76 uIu/mL (0.34-4.82); TOTAL BILIRUBIN 0.4 mg/dL (0.0-1.0); TRIGLYCERIDES 42 mg/dL (30-150)
[2022-10-09 08:00] VITALS: BP_SYST 128
[2022-10-09] MEDS: FUROSEMIDE 40 MG/4 ML VIAL IVP SCH (09:00)
[2022-10-09] MEDS: cefTRIAXone 1 GM in D5W 50 ML IV SCH (09:00)
[2022-10-09] MEDS ORDERED: INSULIN ASPART 100 UNITS/ML, 10 ML VIAL (NovoLOG) SUBCUT PRN (09:00)
[2022-10-09] MEDS ORDERED: BICALUTAMIDE 50 MG TABLET PO SCH (09:00)
[2022-10-09] MEDS ORDERED: GLUCOSE (DEXTROSE) ORAL GEL -Adults PO PRN (09:30)
[2022-10-09] MEDS ORDERED: DEXTROSE 50%-WATER 50 ML DISP.SYRIN IVP PRN (09:30)
[2022-10-09] MEDS ORDERED: D5W 1,000 ML IV PRN (09:30)
[2022-10-09] MEDS ORDERED: METOPROLOL SUCCINATE 25 MG TAB.SR.24H (TOPROL XL) PO ONE (09:45)
[2022-10-09] MEDS ORDERED: ATORVASTATIN 10 MG TABLET PO ONE (09:45)
[2022-10-09] MEDS ORDERED: TAMSULOSIN HCL 0.4 MG CAP PO ONE (09:45)
[2022-10-09] MEDS ORDERED: ALLOPURINOL 100 MG TABLET (ZYLOPRIM) PO ONE (09:45)
--- NOTE | 2022-10-09 11:15 | NUR ---
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 I competed the initial assessment with the patient and his son at bedside. The patient is most comfortable speaking in Persian, therefore he requested I speak with his son in Mexican. He minimally understands Mexican. The patient resides in a single-story home with his son and his girlfriend. He has a walker, however he is not using it on a regular basis. The patient also uses a shower chair, handheld shower head, and railings within the bathroom. He is independent with his ADLs. He does not have a Power of Presentation Specialist. His PCP is Dr. Nicholson in [place]. The discharge plan is to return home with his son. The patient was advised that prior to discharge, he will be assessed for appropriate services and needs. The patient is in agreement of the discharge plan. At time of discharge, the patient states his son or daughter will transport him home. Prior to leaving the room, the son advised that the patient is receiving services from [facility]. He receives quarterly visits from a case management service at home.
[2022-10-09 11:30] VITALS: BP_SYST 110
[2022-10-09 16:57] VITALS: BP_SYST 114
--- NOTE | 2022-10-09 19:30 | NUR ---
OPENING NOTE PT LYING BED. 4 FAMILY MEMBERS AT BED SIDE. BREATHING EVEN AND NONLABORED VIA NASAL CANNULAR O2 2L. NO S/S OF ACUTE DISTRESS. NO PAIN REPORTED. SAFETY CHECKS IN PLACE. CALL LIGHT IN REACH. CONTINUE TO MONITOR
[2022-10-09 20:00] VITALS: BP_SYST 125
--- NOTE | 2022-10-09 23:36 | NUR ---
ROUNDING NOTE PT LYING IN BED, EYES CLOSED. NO PAIN REPORTED. VSS. URINE OUT PUT 350cc CLEAR. SAFETY CHECKS IN PLACE. CALL LIGHT IN REACH. CONTINUE TO MONITOR.
[2022-10-09 23:51] VITALS: BP_SYST 125
[2022-10-10] VITALS: BP_SYST 123
[2022-10-10 06:59] LABS: ALANINE AMINOTRANSFERASE 33 U/L (12-78); ALBUMIN 2.8 g/dL (3.4-4.8); ANION GAP 9 (5-15); ASPARTATE AMINOTRANSFERASE 26 U/L (10-37); CHLORIDE 102 mmol/L (98-107); CREATININE 1.74 mg/dL (0.55-1.30); GLUCOSE 204 mg/dL (70-99); TOTAL BILIRUBIN 0.3 mg/dL (0.0-1.0); UREA NITROGEN, BLOOD 40 mg/dL (8-21)
--- NOTE | 2022-10-10 07:03 | NUR ---
CLOSING NOTE PT LYING BED. WATCHING TV. BREATHING EVEN AND NONLABORED VIA NASAL CANNULAR O2 2L. NO S/S OF ACUTE DISTRESS. NO PAIN REPORTED. SAFETY CHECKS IN PLACE. CALL LIGHT IN REACH. ENDORSED TO DAY SHIFT NURSE
[2022-10-10 08:00] VITALS: BP_SYST 114
[2022-10-10] MEDS: METOPROLOL SUCCINATE 25 MG TAB.SR.24H (TOPROL XL) PO SCH (09:00)
[2022-10-10] MEDS: cefTRIAXone 1 GM in D5W 50 ML IV SCH (09:51)
[2022-10-10] MEDS: TAMSULOSIN HCL 0.4 MG CAP PO SCH (09:52)
[2022-10-10] MEDS: ALLOPURINOL 100 MG TABLET (ZYLOPRIM) PO SCH (09:52)
[2022-10-10] MEDS: ATORVASTATIN 10 MG TABLET PO SCH (09:52)
[2022-10-10] MEDS: FUROSEMIDE 40 MG/4 ML VIAL IVP SCH (09:52)
[2022-10-10 12:00] VITALS: BP_SYST 122
[2022-10-10 16:00] VITALS: BP_SYST 125
[2022-10-10 20:49] VITALS: BP_SYST 129
--- NOTE | 2022-10-10 23:02 | NUR ---
PT VITALS ARE STABLE, PT LIES DOWN IN BED COMFORTABLE, NO SIGNS OF DISTRESS . ALERT ORIENTED X4. NO SHORTNESS OF BREATH OR CHEST PAIN . COMFORT MEASURES PROVIDED.PATEINT EDUCATION PROVIDED. CALL LIGHT WITHIN REACH
[2022-10-11 05:22] VITALS: BP_SYST 136
[2022-10-11 06:33] LABS: BASOPHILS # (AUTO) 0.1 K/uL (0.0-0.2); BASOPHILS % (AUTO) 0.6 % (0.0-2.0); EOSINOPHILS # (AUTO) 0.3 K/uL (0.0-0.4); HEMATOCRIT 31.2 % (36-54); HEMOGLOBIN 10.3 g/dL (14.0-18.0); LYMPHOCYTES % (AUTO) 9.2 % (20.5-51.5); MEAN CORPUSCULAR HEMOGLOBIN 31 pg (27-31); MEAN CORPUSCULAR HGB CONC 33 % (32-36); MEAN CORPUSCULAR VOLUME 92 fL (79.0-98.0); MONOCYTES # (AUTO) 0.9 K/uL (0.0-1.0); MONOCYTES % (AUTO) 7.7 % (1.7-9.3); NEUTROPHILS # (AUTO) 8.8 K/uL (1.8-7.7); NEUTROPHILS % (AUTO) 79.5 % (40.0-70.0); PLATELET COUNT (AUTO) 260 K/uL (130-430); RED BLOOD CELL COUNT(AUTO) 3.37 MIL/uL (4.2-6.2); WHITE BLOOD COUNT (AUTO) 11.1 K/uL (4.8-10.8)
[2022-10-11 06:49] LABS: ALANINE AMINOTRANSFERASE 29 U/L (12-78); ALBUMIN 2.7 g/dL (3.4-4.8); ANION GAP 8 (5-15); ASPARTATE AMINOTRANSFERASE 26 U/L (10-37); CHLORIDE 102 mmol/L (98-107); CREATININE 1.66 mg/dL (0.55-1.30); GLUCOSE 148 mg/dL (70-99); TOTAL BILIRUBIN 0.3 mg/dL (0.0-1.0); UREA NITROGEN, BLOOD 41 mg/dL (8-21)
--- NOTE | 2022-10-11 08:35 | NUR ---
INITIAL ROUNDS Received pt AAOx4, no s/s resp distress, c/o pain 5/10 when he moves-pt sat up at bedside to eat breakfast-then resolves. Pt c/o constipation-will inform MD. Plan of care for the day reviewed with pt-pt verbalized his understanding. Pain management, disease process, skin and safety discussed-teach back done. Side rails up x3, bed alarm on for safety. Call light within reach.
[2022-10-11 08:50] VITALS: BP_SYST 135
[2022-10-11 08:57] VITALS: BP_SYST 135
[2022-10-11] MEDS ORDERED: MILK OF MAGNESIA 30 ML UDC PO ONE (09:00)
[2022-10-11] MEDS: TAMSULOSIN HCL 0.4 MG CAP PO SCH (09:37)
[2022-10-11] MEDS: ALLOPURINOL 100 MG TABLET (ZYLOPRIM) PO SCH (09:37)
[2022-10-11] MEDS: cefTRIAXone 1 GM in D5W 50 ML IV SCH (09:37)
[2022-10-11] MEDS: DOCUSATE SODIUM 100 MG CAPSULE PO SCH (09:37)
[2022-10-11] MEDS: METOPROLOL SUCCINATE 25 MG TAB.SR.24H (TOPROL XL) PO SCH (09:38)
[2022-10-11] MEDS: FUROSEMIDE 40 MG/4 ML VIAL IVP SCH (09:40)
[2022-10-11] MEDS: ATORVASTATIN 10 MG TABLET PO SCH (09:40)
--- NOTE | 2022-10-11 15:01 | NUR ---
ROUNDS Pt resting quietly in bed with no s/s resp distress, no c/o pain or discomfort. No c/o shortness of breath. Pt's daughter just left. All precautions remain in place. Call light within reach.
--- NOTE | 2022-10-11 15:57 | NUR ---
Dietitian Recommendations * Ordered Renal diet. * Consider Renal, CCHO diet if BG remains high. * Ordered Snacks BID. * POC BG monitoring. Submitted for ANGIE Arredondo by Lesli Ware, MPH, RD Please see Nutrition Assessment for further details. Thanks!
[2022-10-11 16:35] VITALS: BP_SYST 128
--- NOTE | 2022-10-11 19:28 | NUR ---
CLOSING NOTE Pt sitting up in bed with no s/s resp distress, no c/o pain or discomfort. Pt given fresh water per request. Endorsed care to warehouse shift supervisor nurse. All precautions remain in place. Call light within reach.
[2022-10-11 23:18] VITALS: BP_SYST 132
[2022-10-12 04:06] VITALS: BP_SYST 142
--- NOTE | 2022-10-12 04:22 | NUR ---
T VITALS ARE STABLE, NO SIGNS OF DISTRESS OR CHEST PAIN OR SHORTNESS OF BREATH. HE IS AMBULATORY AND NO COMPLAIN OF CONSTIPATION. PT HAS BM ON 10/11/2022. PATIENT EDUCATION PROVIDED. SAFETY MEASURES FOLLOWED. COMFORT MEASURES PROVIDED
[2022-10-12 07:42] VITALS: BP_SYST 141
--- NOTE | 2022-10-12 08:00 | NUR ---
Start of shift Pt sitting up in bed eating his breakfast. No SOB/resp distress or chest pain/discomfort noted at this time. Pt removes O2 and sats well on room air (above 94%). IV in left hand intact and patent. Tele unit attached and intact at this time. Pt states he is able to ambulate with standby assist. Bed in low position and bed alarm on. Side rails raised at this time. Call light within reach.
[2022-10-12] MEDS: cefTRIAXone 1 GM in D5W 50 ML IV SCH (08:29)
[2022-10-12] MEDS: DOCUSATE SODIUM 100 MG CAPSULE PO SCH (08:29)
[2022-10-12] MEDS: TAMSULOSIN HCL 0.4 MG CAP PO SCH (08:29)
[2022-10-12] MEDS: METOPROLOL SUCCINATE 25 MG TAB.SR.24H (TOPROL XL) PO SCH (08:30)
[2022-10-12] MEDS: ATORVASTATIN 10 MG TABLET PO SCH (08:30)
[2022-10-12] MEDS: FUROSEMIDE 40 MG/4 ML VIAL IVP SCH (08:31)
[2022-10-12] MEDS: ALLOPURINOL 100 MG TABLET (ZYLOPRIM) PO SCH (08:31)
[2022-10-12 11:46] VITALS: BP_SYST 115
--- NOTE | 2022-10-12 11:50 | NUR ---
NOTE Pt's tele unit was dc'd and returned to automation tech.
[2022-10-12 15:32] VITALS: BP_SYST 125
[2022-10-12] MEDS ORDERED: DOXY100T2 PO (16:00)
[2022-10-12 18:03] VITALS: BP_SYST 127
--- NOTE | 2022-10-12 18:25 | NUR ---
End of shift Pt's daughter Randolph was called and informed that pt has discharge order. Randolph will come in at 0730pm (after work) to pick pt and take him home. No SOB/resp distress or chest pain/discomfort noted at this time. No needs noted at this time. Call light within reach.
--- NOTE | 2022-10-13 09:02 | NUR ---
CM: notified discharge to home to Verena and faxed the referral package to [facility] Team # [phone], tel [phone]. She will arrange the care team for follow up visit. Addendum: 10/13/22 at 0912 by Marlene Medrano RN The order indicated arrange "[facility]". Per ESEQUIEL DicksonR : no need the pt will continue care with [facility].
== END 2022-10-12 20:10 | disposition home or self-care (01) | DRG 871 ==
LOC: SED 11:37 → STU 15:30 → SMU 10-12 11:25
PROVIDERS: ADMIT Internal Medicine; ATTEND Internal Medicine
DX: A41.9 Sepsis, unspecified organism (principal); E43 Unspecified severe protein-calorie malnutrition; J18.9 Pneumonia, unspecified organism; I50.33 Acute on chronic diastolic (congestive) heart failure; I13.0 Hypertensive heart and chronic kidney disease with heart failure and stage 1 through stage 4 chronic kidney disease, or unspecified chronic kidney disease; N17.9 Acute kidney failure, unspecified; I48.20 Chronic atrial fibrillation, unspecified; R64 Cachexia; E78.5 Hyperlipidemia, unspecified; Z20.822 Contact with and (suspected) exposure to COVID-19; I35.0 Nonrheumatic aortic (valve) stenosis; N18.30 Chronic kidney disease, stage 3 unspecified; E11.22 Type 2 diabetes mellitus with diabetic chronic kidney disease; Z88.5 Allergy status to narcotic agent; Z88.8 Allergy status to other drugs, medicaments and biological substances; Z79.899 Other long term (current) drug therapy; Z85.46 Personal history of malignant neoplasm of prostate; Z79.01 Long term (current) use of anticoagulants; Z79.4 Long term (current) use of insulin; Z68.33 Body mass index [BMI] 33.0-33.9, adult
CPT/HCPCS: 36415; 71045; 80053; 80061; 83037; 83735; 83880; 84443; 84484; 85025; 93005; 99285; G0378; J0696; J1940; J7060